=== PATIENT | female | born 1990 ===

== ENCOUNTER 2016-10-25 08:22 | Emergency (ER) | payer MEDICAID ==
[2016-10-25 08:29] VITALS: BP 127/72; PULSE 101; TEMP 98.4; O2SAT 96
[2016-10-25 09:07] LABS: RBC URINE 21 /hpf (0-3); URINE BACTERIA RARE (<OCC); URINE BILIRUBIN NEGATIVE (NEGATIVE); URINE BLOOD 3+ (NEGATIVE); URINE COLOR Yellow (YELLOW); URINE GLUCOSE (UA) NORMAL (Normal); URINE KETONE NEGATIVE (NEGATIVE); URINE LEUKOCYTE ESTERASE 3+ Leu/uL (Negative); URINE PROTEIN NEGATIVE (NEGATIVE); URINE UROBILINOGEN NORMAL mg/dL (0.2-1.0); WBC URINE 64 /hpf (0-5)
[2016-10-25 09:25] LABS: BASO # 0.1 K/uL (0.0-0.2); BASO % 0.6 % (0.0-2.0); EOS % 0.2 % (0.0-4.0); HEMATOCRIT 40.2 % (34.0-47.0); LYMPH # 1.5 K/uL (1.0-4.3); LYMPH % 14.9 % (20.0-40.0); MEAN CELL VOLUME 90.5 fL (81.0-99.0); MEAN CORPUSCULAR HEMOGLOBIN 30.2 pg (27.0-31.0); MEAN CORPUSCULAR HGB CONC 33.4 g/dL (33.0-37.0); MEAN PLATELET VOLUME 9.5 fL (7.2-11.7); MONO # 0.5 K/uL (0.0-0.8); MONO % 4.8 % (0.0-10.0); WHITE BLOOD COUNT 10.4 K/uL (4.8-10.8)
[2016-10-25 09:36] LABS: CHLORIDE 103 mmol/L (98-107); SODIUM 137 mmol/L (132-148)
[2016-10-25 09:38] LABS: ALKALINE PHOSPHATASE 71 U/L (38-126); AST/SGOT 40 U/L (14-36); BILIRUBIN,TOTAL 0.9 mg/dL (0.2-1.3); CARBON DIOXIDE 22 mmol/L (22-30); GFR AFRICAN-AMERICAN > 60; TOTAL PROTEIN 7.6 g/dL (6.3-8.3)
[2016-10-25 09:39] LABS: ALT/SGPT 27 U/L (9-52); BLOOD UREA NITROGEN 6 mg/dL (7-17); GLUCOSE,RANDOM 90 mg/dL (65-105); POTASSIUM 4.4 mmol/L (3.6-5.2)
--- NOTE | 2016-10-25 10:26 | US ---
Indication: PELVIC PAIN, BLEEDING, Comparison: None available. Technique: Real-time transabdominal pelvic ultrasound was performed. In addition a transvaginal pelvic ultrasound was necessary to better depict pelvic anatomy. Findings: The uterus measures approximately 11.1 x 6.9 x 8.3 cm. Anteverted. Cervix length measures approximately 3.5 cm. There is a single intrauterine fetus present. 4 mm yolk sac. The gestational sac measures 3.9 cm and is compatible with a gestational age of 9 weeks 1 day. The crown-rump length measures 3.1 cm and is compatible with a gestational age of 10 weeks 0 days. heart motion was not detected during this examination. The right ovary measures 2.6 x 1.9 x 2.5 cm. The left ovary measures 3.6 x 1.6 x 2.7 cm. Blood flow was demonstrated to both ovaries. Impression: Single intrauterine with estimated gestational age 9 weeks 1 day by gestational sac calculation and 10 weeks 0 days by crown-rump length calculation. heart motion was not detected during this examination. Correlate clinically.
--- NOTE | 2016-10-25 11:09 | C.PDOC ---
History Of Present Illness 26 year old female presents to the ED with complaints of vaginal bleeding and abdominal cramping beginning this morning. Patient is 9 weeks , . She denies complications during previous pregnancies, and also denies vomiting, dysuria, fever, or vaginal discharge. Time Seen by Provider: 10/25/16 08:36 Chief Complaint (Nursing): Female Genitourinary History Per: Patient History/Exam Limitations: no limitations Onset/Duration Of Symptoms: Hrs Current Symptoms Are (Timing): Still Present Severity: Mild Location Of Pain/Discomfort: Suprapubic Radiation Of Pain To:: None Quality Of Discomfort: Cramping Associated Symptoms: denies: Fever, Chills, Nausea, Vomiting, Diarrhea Abnormal Vaginal Bleeding: Yes : 3 Para: 2 Past Medical History Reviewed: Historical Data, Nursing Documentation, Vital Signs Vital Signs: Last Vital Signs Temp 98.4 F 10/25/16 08:27 Pulse 101 H 10/25/16 08:27 Resp 18 10/25/16 11:50 BP 127/72 10/25/16 08:27 Pulse Ox 96 10/25/16 11:44 - Medical History PMH: No Chronic Diseases Family History: States: No Known Family Hx - Social History Hx Alcohol Use: No Hx Substance Use: No - Immunization History Hx Tetanus Toxoid Vaccination: Yes Hx Influenza Vaccination: No Hx Pneumococcal Vaccination: No Review Of Systems Except As Marked, All Systems Reviewed And Found Negative. Constitutional: Negative for: Fever, Chills Cardiovascular: Negative for: Chest Pain, Palpitations Respiratory: Negative for: Cough, Shortness of Breath Gastrointestinal: Positive for: Abdominal Pain (abdominal cramping ). Negative for: Nausea, Vomiting, Diarrhea Genitourinary: Positive for: Vaginal Bleeding. Negative for: Dysuria, Frequency , Hematuria, Vaginal Discharge Physical Exam - Physical Exam Appears: Well, Non-toxic, No Acute Distress, Other ( appears comfortable. ) Skin: Warm, Dry Eye(s): bilateral: Normal Inspection Oral Mucosa: Moist Cardiovascular: Rhythm Regular Respiratory: Normal Breath Sounds, No Rales, No Rhonchi, No Wheezing Gastrointestinal/Abdominal: Bowel Sounds, Soft, Tenderness (suprapubic tenderness to palpation ), No Distention, No Guarding, No Rebound, Other ( Negative McBurney's. ) Back: No CVA Tenderness Neurological/Psych: Oriented x3 ED Course And Treatment - Laboratory Results Result Diagrams: 10/25/16 09:10 10/25/16 09:10 O2 Sat by Pulse Oximetry: 96 (room air ) Pulse Ox Interpretation: Normal - CT Scan/US transabdominal pelvic ultrasound Other Rad Studies (CT/US): Read By Radiologist, Radiology Report Reviewed CT/US Interpretation: Findings: The uterus measures approximately 11.1 x 6.9 x 8.3 cm. Anteverted. Cervix length measures approximately 3.5 cm. There is a single intrauterine fetus present. 4 mm yolk sac. The gestational sac measures 3.9 cm and is compatible with a gestational age of 9 weeks 1 day. The crown- rump length measures 3.1 cm and is compatible with a gestational age of 10 weeks 0 days. heart motion was not detected during this examination. The right ovary measures 2.6 x 1.9 x 2.5 cm. The left ovary measures 3.6 x 1.6 x 2.7 cm. Blood flow was demonstrated to both ovaries. Impression: Single intrauterine with estimated gestational age 9 weeks 1 day by gestational sac calculation and 10 weeks 0 days by crown-rump length calculation. heart motion was not detected during this examination. Correlate clinically. Progress Note: Blood work, UA, transvaginal US ordered and reviewed. Reevaluation Time: 11:40 Reassessment Condition: Improved (On reassessment, patient is resting comfortably, in no pain/distress. On exam, abdomen is soft and nontender. US shows [id number] IUP without heart activity. Explained to patient she should return to ED or her folder hand in 48 hours for repeat US and beta quant. UA shows large amount of squamous cells, appears dirty, do not suspect actual UTI. Patient understands she should return to Ed if symptoms worsen.) Disposition Counseled Patient/Family Regarding: Studies Performed, Diagnosis, Need For Followup - Disposition Referrals: [facility] [Outside] Disposition: HOME/ ROUTINE Disposition Time: 11:40 Condition: STABLE Additional Instructions: DEVUELVA A LA LYNNE DE EMERGENCIA OA ABARCA GINECLOGO EN 2 LU PARA REPETIR EL NIVEL DE HORMONA Y EL ULTRASONIDO USE TYLENOL PARA EL DOLOR JACQUE SEA NECESARIO BEBER MUCHO LQUIDO Instructions: First Trimester Vaginal Bleed (ED) Forms: [facility] (Japanese) Print Language: SERBIAN - POA Present On Arrival: None - Clinical Impression Clinical Impression: Vaginal bleeding before 22 weeks gestation - Scribe Statement The provider has reviewed the documentation as recorded by the Scribe Minnie Caballero All medical record entries made by the Scribe were at my direction and personally dictated by me. I have reviewed the chart and agree that the record accurately reflects my personal performance of the history, physical exam, medical decision making, and the department course for this patient. I have also personally directed, reviewed, and agree with the discharge instructions and disposition.
[2016-10-25 11:51] VITALS: RESP 18
== END 2016-10-25 12:07 | disposition home or self-care (01) ==
LOC: C.ER 08:22
DX: O46.91 Antepartum hemorrhage, unspecified, first trimester (principal); Z3A.09 9 weeks gestation of pregnancy

== ENCOUNTER 2018-01-10 23:46 | Emergency (ER) | payer SELFPAY ==
[2018-01-10 23:55] VITALS: RESP 16; O2SAT 100
--- NOTE | 2018-01-11 00:03 | C.PDOC ---
History Of Present Illness 29 year old female presents to the ER with a complaint vaginal spotting that began tonight associated with constipation for the past 3 days. Patient reports she is currently , , LMP 12/02/17. Patient has not yet seen OB for this . Otherwise no abnl d/c beside blood. Pt notes she has sex w/ one partner, uses condoms, except when trying to get recently. No yellow vaginal d/c. No constipation or diarrhea. Denies dysuria, fever, chills, nausea, vomiting, bloody stools, or dark stools. Time Seen by Provider: 01/11/18 00:02 Chief Complaint (Nursing): Female Genitourinary History Per: Patient History/Exam Limitations: no limitations Onset/Duration Of Symptoms: Hrs Current Symptoms Are (Timing): Still Present Recent travel outside of the [place]: No Past Medical History Reviewed: Historical Data, Nursing Documentation, Vital Signs Vital Signs: Last Vital Signs Temp 98.4 F 01/10/18 23:50 Pulse 74 01/10/18 23:50 Resp 16 01/10/18 23:50 BP 131/83 01/10/18 23:50 Pulse Ox 100 01/10/18 23:50 Family History: States: Unknown Family Hx - Social History Hx Alcohol Use: No Hx Substance Use: No - Immunization History Hx Tetanus Toxoid Vaccination: Yes Hx Influenza Vaccination: No Hx Pneumococcal Vaccination: No Review Of Systems Constitutional: Negative for: Fever, Chills Eyes: Negative for: Pain, Eyelid Inflammation ENT: Negative for: Ear Pain, Ear Discharge, Nose Pain, Nose Congestion, Mouth Pain, Mouth Swelling Cardiovascular: Negative for: Chest Pain, Palpitations Respiratory: Negative for: Cough, Shortness of Breath Gastrointestinal: Positive for: Constipation. Negative for: Vomiting, Abdominal Pain, Diarrhea, Melena, Hematochezia, Hematemesis, Other (Bloody stools, dark stools) Genitourinary: Positive for: Other (Vaginal spotting). Negative for: Dysuria, Frequency, Incontinence, Hematuria, Vaginal Discharge, Pelvic Pain Musculoskeletal: Negative for: Neck Pain, Shoulder Pain, Back Pain, Hand Pain Skin: Negative for: Rash, Lesions Neurological: Positive for: Headache (mild). Negative for: Weakness, Numbness, Incoordination, Confusion, Seizures, Altered Mental Status, Dizziness Physical Exam - Physical Exam Appears: Well, Non-toxic, No Acute Distress Skin: Normal Color, Warm, Dry Head: Atraumatic, Normacephalic Eye(s): bilateral: Normal Inspection, PERRL, EOMI Ear(s): Bilateral: Normal Nose: Normal Oral Mucosa: Moist Tongue: Normal Appearing Lips: Normal Appearing Teeth: Normal Dentition Gingiva: Normal Appearing Throat: Normal, No Erythema Neck: Normal, Supple, Other (no meningeal signs) Chest: Symmetrical, No Tenderness Cardiovascular: Rhythm Regular, No Friction Rub, No Murmur Respiratory: Normal Breath Sounds, No Rales, No Rhonchi, No Wheezing Gastrointestinal/Abdominal: Normal Exam, Soft, No Tenderness, No Mass, No Distention, No Guarding Back: Normal Inspection, No CVA Tenderness, No Vertebral Tenderness Extremity: Normal ROM, No Tenderness, No Calf Tenderness, No Deformity Extremity: Bilateral: Atraumatic Neurological/Psych: Oriented x3, Normal Speech, Normal Cognition, Normal Cranial Nerves, No Cerebellar Signs, Normal Motor Gait: Steady Extremity: Right: No Drift, Left: No Drift, Upper: No Drift, Lower: No Drift ED Course And Treatment - Laboratory Results Result Diagrams: 01/11/18 00:33 01/11/18 00:33 O2 Sat by Pulse Oximetry: 100 Medical Decision Making Medical Decision Makin yr old female p/w vaginal spotting, mild SMITH (not worst of life, not sudden in onset, w/ out FND) and constipation x3d without n/v. No dark or bloody stool. Pts main concern was the spotting however. Blood work, urinalysis, and transvaginal US ordered. IV fluids and tylenol administered. 0203 BHCG unremarkable POC negative ?Miscarragie pending US UA unremarkable. a+ blood, no indication for rhogram 0308 pt notes +preg test weeks earlier No IUP on US, no evid ovarian torsion on pelvic exam, no CMT, cervical Os closed, No adenexal tenderness. Non visible d/c from os. likely miscarriage/ complete , will d/c home w/ f/u instructions and return indications. pt agreeable and in NAD. Disposition - Disposition Disposition Time: 03:09 Condition: GOOD Instructions: Miscarriage, Dealing With Miscarriage Forms: [facility] (Greek) - Clinical Impression Clinical Impression: Miscarriage - Scribe Statement The provider has reviewed the documentation as recorded by the Scribe Tomás Serrano All medical record entries made by the Sherryibleda were at my direction and personally dictated by me. I have reviewed the chart and agree that the record accurately reflects my personal performance of the history, physical exam, medical decision making, and the department course for this patient. I have also personally directed, reviewed, and agree with the discharge instructions and disposition.
[2018-01-11] MEDS ORDERED: Sodium Chloride 0.9% 1,000 ML IV ONE (00:30)
[2018-01-11 00:36] LABS: BASO # 0.1 K/uL (0.0-0.2); BASO % 0.9 % (0.0-2.0); EOS # 0.1 K/uL (0.0-0.7); EOS % 1.1 % (0.0-4.0); HEMOGLOBIN 14.6 g/dL (11.0-16.0); LYMPH # 3.4 K/uL (1.0-4.3); LYMPH % 30.7 % (20.0-40.0); MEAN CORPUSCULAR HEMOGLOBIN 31.5 pg (27.0-31.0); MEAN CORPUSCULAR HGB CONC 34.3 g/dL (33.0-37.0); MEAN PLATELET VOLUME 9.5 fL (7.2-11.7); MONO # 0.7 K/uL (0.0-0.8); MONO % 6.1 % (0.0-10.0); NEUT # 6.8 K/uL (1.8-7.0); NEUT % 61.2 % (50.0-75.0); NRBC % 0.1 % (0.0-2.0); RBC 4.62 Mil/uL (3.80-5.20); RED CELL DISTRIBUTION WIDTH 13.3 % (11.5-14.5); WHITE BLOOD COUNT 11.1 K/uL (4.8-10.8)
[2018-01-11] MEDS ORDERED: Sodium Chloride 0.9% 1,000 ML ONE (00:39)
[2018-01-11 00:40] LABS: SQUAMOUS EPITHIAL 1 /hpf (0-5); URINE BILIRUBIN NEGATIVE (NEGATIVE); URINE BLOOD 2+ (NEGATIVE); URINE CLARITY Clear (Clear); URINE COLOR Yellow (YELLOW); URINE GLUCOSE (UA) NORMAL (Normal); URINE LEUKOCYTE ESTERASE NEG Leu/uL (Negative); URINE PROTEIN NEGATIVE (NEGATIVE); URINE UROBILINOGEN NORMAL mg/dL (0.2-1.0)
[2018-01-11 01:04] LABS: ALB/GLOB RATIO 1.6 (1.0-2.1); ALT/SGPT 26 U/L (9-52); AST/SGOT 24 U/L (14-36); BLOOD UREA NITROGEN 11 mg/dL (7-17); CALCIUM 9.7 mg/dl (8.6-10.4); GFR NON-AFRICAN AMERICAN > 60
[2018-01-11 03:34] VITALS: BP 108/70; PULSE 69; TEMP 98.2
--- NOTE | 2018-01-11 12:33 | US ---
Date of service: 01/11/2018 HISTORY: vag bleeding COMPARISON: 1st trimester ultrasound performed 10/25/16 TECHNIQUE: Real-time transabdominal pelvic ultrasound was performed. In addition a transvaginal pelvic ultrasound was necessary to better depict pelvic anatomy. FINDINGS: UTERUS: Measures 8.5 x 4.5 x 5.3 cm. Anteverted. ENDOMETRIUM: Measures 6 mm in diameter. CERVIX: Cervix length measures approximately 2.9 cm. RIGHT OVARY: Measures 2.1 x 1.0 x 1.6 cm. Blood flow is demonstrated. LEFT OVARY: Measures 3.3 x 1.7 x 2.9 cm. Blood flow is demonstrated. FREE FLUID: No significant free fluid noted. OTHER FINDINGS: None. IMPRESSION: No evidence of intrauterine gestational sac. If indeed the patient is based on serum beta HCG values, the sonographic findings represent either: Very early IUP; embryonic demise; ectopic gestation. Follow-up with serial quantitative serum beta HCG measurements and post OBGYN follow-up as clinically indicated, since ectopic gestation cannot be excluded based only on sonographic findings. Preliminary impression was provided by [employer]
== END 2018-01-11 03:33 | disposition home or self-care (01) ==
LOC: EDBD 23:46 → C.ER 23:46
DX: O03.9 Complete or unspecified spontaneous abortion without complication (principal)
CPT/HCPCS: 76830; 76856; 80053; 81001; 84702; 85025; 86850; 86900; 99285; J7030